=== PATIENT | male | born 1980 | race American Indian/Alaskan Native ===

== ENCOUNTER 2021-05-25 23:22 | Emergency (ER) | payer SELFPAY ==
[2021-05-26 01:54] VITALS: BP 135/76
--- NOTE | 2021-05-26 03:46 | Emergency Department Report ---
ED Male HPI - General Chief complaint: Urogenital-Male Stated complaint: Penile bleeding post-urinary procedure today Time Seen by Provider: 05/26/21 03:05 Source: patient Mode of arrival: Ambulatory Limitations: No Limitations - History of Present Illness Initial comments: 40-year-old male status post a bladder procedure to have his prostate inspected with the scope presents emerged department complaining of urinating and seeing an little blood and was worried that something was wrong so he came to the emergency department feels little pressure from time to time but minimal pain if any no fever, chills, sweats. No nausea no vomiting was advised by primary care doctor to come be seen at the emergency department [id number]. ED Review of Systems ROS: Stated complaint: Penile bleeding post-urinary procedure today Other details as noted in HPI Comment: All other systems reviewed and negative ED Physical Exam - General Limitations: No Limitations General appearance: alert, in no apparent distress - Head Head exam: Present: atraumatic, normocephalic - Eye Eye exam: Present: normal appearance - Neck Neck exam: Present: full ROM - Respiratory Respiratory exam: Absent: respiratory distress, accessory muscle use - Cardiovascular Cardiovascular Exam: Present: regular rate (Heart rate was 92), normal rhythm - Extremities Exam Extremities exam: Present: normal inspection - Back Exam Back exam: Present: normal inspection - Neurological Exam Neurological exam: Present: alert ED Course Vital Signs 05/26/21 01:49 Temperature 98.7 F Pulse Rate 114 H Respiratory 16 Rate Blood Pressure 135/76 [Right] O2 Sat by Pulse 97 Oximetry Critical care attestation.: If time is entered above; I have spent that time in minutes in the direct care of this critically ill patient, excluding procedure time. ED Disposition Clinical Impression: Traumatic hematuria Disposition: HOME / SELF CARE / HOMELESS Is pt being admited?: No Does the pt Need Aspirin: No Condition: Stable Instructions: Hematuria, Adult Additional Instructions: To be sure to follow-up with your urologist following your bladder scope procedure keep self hydrated utilize Tylenol and Motrin as needed if you develop any discomfort Referrals: PRIMARY CARE, [Referring] - 2-3 Days (Be sure to follow-up with your urologist)
== END 2021-05-26 09:04 | disposition home or self-care (01) ==
LOC: ED 23:22
DX: R31.9 Hematuria, unspecified (principal)
CPT/HCPCS: 99281